=== PATIENT | male | born 1965 | race Caucasian/White ===

== ENCOUNTER 2018-09-28 10:00 | Day surgery (SDC) | payer OTHER ==
[~2018-09-28] VITALS: Ht 182.9 cm; Wt 94.8 kg
[~2018-09-28 10:00] MED LIST: ESOM0.1C PO; NS 1,000 ML IV ONE
[2018-09-28] MEDS ORDERED: PROPOFOL 200 MG/20 ML VIAL As Ordered ONE (12:21)
[2018-09-28] MEDS ORDERED: fentaNYL 100 MCG/2 ML INJECTION (J3010) As Ordered ONE (12:21)
[2018-09-28] MEDS ORDERED: LIDOCAINE 2% INJ 100 MG/5 ML SDV (FOR ANES.) As Ordered ONE (12:21)
[2018-09-28] MEDS ORDERED: ePHEDrine SULFATE 25 MG/5 ML(5MG/ML) SYRINGE As Ordered ONE (12:21)
--- NOTE | 2018-09-28 12:23 | ROOR ---
Patient Name: Bijan Bennett Procedure Date: 09/28/2018 12:06 PM Date of : 1965 Age: 52 Room: [facility] Gender: Male Note Status: Finalized Procedure: Upper Endoscopy + Biopsies Indications: Heartburn, Suspected eosinophilic esophagitis, Exclusion of eosinophilic esophagitis, Follow-up of eosinophilic esophagitis Providers: Chano Knott MD Referring MD: Kris Connor Np Requesting Provider: Medicines: Monitored Anesthesia Care Complications: No immediate complications. Procedure: Pre-Anesthesia Assessment: - The heart rate, respiratory rate, oxygen saturations, blood pressure, adequacy of pulmonary ventilation, and response to care were monitored throughout the procedure. The Endoscope was introduced through the mouth, and advanced to the second part of duodenum. The upper GI endoscopy was accomplished without difficulty. The patient tolerated the procedure well. Findings: The Z-line was regular and was found 45 cm from the incisors. Multiple biopsies were obtained with cold forceps for evaluation to rule out Lara's Esophagus randomly at the gastroesophageal junction. Mucosal changes including ringed esophagus were found in the entire esophagus. Biopsies were obtained from the proximal and distal esophagus with cold forceps for histology of suspected eosinophilic esophagitis. No other significant abnormalities were identified in a careful examination of the stomach. The exam of the duodenum was otherwise normal. Impression: - Z-line regular, 45 cm from the incisors. - Esophageal mucosal changes suspicious for eosinophilic esophagitis. Biopsied. - Multiple biopsies were obtained at the gastroesophageal junction. - The examination was otherwise normal. Recommendation: - Patient has a contact number available for emergencies. The signs and symptoms of potential delayed complications were discussed with the patient. Return to normal activities tomorrow. Written discharge instructions were provided to the patient. - High fiber diet. - Discharge patient to home. - Follow an antireflux regimen. - Continue present medications. - Await pathology results. - Telephone GI clinic for pathology results in 1 week. - Return to referring physician. - The findings and recommendations were discussed with the patient's family. Chano Knott MD Chano Knott MD 09/28/2018 12:23:06 PM This report has been signed electronically. Number of Addenda: 0 Note Initiated On: 09/28/2018 12:06 PM Estimated Blood Loss: Estimated blood loss: none.
--- NOTE | 2018-09-28 12:42 | ROOR ---
Patient Name: Bijan Bennett Procedure Date: 09/28/2018 12:06 PM Date of : 1965 Age: 52 Room: [facility] Gender: Male Note Status: Finalized Procedure: Total Colonoscopy to Cecum + Biopsy Polypectomy Indications: Screening for colorectal malignant neoplasm Providers: Chano Knott MD Referring MD: rKis Connor Np Requesting Provider: Medicines: Monitored Anesthesia Care Complications: No immediate complications. Procedure: Pre-Anesthesia Assessment: - The heart rate, respiratory rate, oxygen saturations, blood pressure, adequacy of pulmonary ventilation, and response to care were monitored throughout the procedure. The Colonoscope was introduced through the anus and advanced to the cecum, identified by appendiceal orifice and ileocecal valve. The colonoscopy was performed without difficulty. The patient tolerated the procedure well. The quality of the bowel preparation was excellent. Findings: The perianal and digital rectal examinations were normal. Non-bleeding internal hemorrhoids were found during retroflexion. The hemorrhoids were small and Grade I (internal hemorrhoids that do not prolapse). A small polyp was found at 40 cm proximal to the anus. The polyp was sessile. The polyp was removed with a jumbo cold forceps. Resection and retrieval were complete. Two sessile polyps were found in the hepatic flexure. The polyps were small in size. These polyps were removed with a jumbo cold forceps. Resection and retrieval were complete. The exam was otherwise without abnormality on direct and retroflexion views. Impression: - Non-bleeding internal hemorrhoids. - One small polyp at 40 cm proximal to the anus, removed with a jumbo cold forceps. Resected and retrieved. - Two small polyps at the hepatic flexure, removed with a jumbo cold forceps. Resected and retrieved. - The examination was otherwise normal on direct and retroflexion views. - The exam was otherwise normal to the cecum. Recommendation: - Patient has a contact number available for emergencies. The signs and symptoms of potential delayed complications were discussed with the patient. Return to normal activities tomorrow. Written discharge instructions were provided to the patient. - High fiber diet. - Discharge patient to home. - Continue present medications. - Await pathology results. - Telephone GI clinic for pathology results in 1 week. - Repeat colonoscopy in 5 years for surveillance based on pathology results. - Return to referring physician. - The findings and recommendations were discussed with the patient's family. Chano Knott MD Chano Knott MD 09/28/2018 12:42:11 PM This report has been signed electronically. Number of Addenda: 0 Note Initiated On: 09/28/2018 12:06 PM Estimated Blood Loss: Estimated blood loss: none.
[2018-09-28 13:20] VITALS: BP 110/76
== END 2018-09-28 13:32 | disposition home or self-care (01) ==
LOC: M OPP 10:00
PROVIDERS: ATTEND Internal Medicine Gastroenterology
DX: Z12.11 Encounter for screening for malignant neoplasm of colon (principal); K64.0 First degree hemorrhoids; K63.5 Polyp of colon; D12.3 Benign neoplasm of transverse colon; K22.0 Achalasia of cardia; R12 Heartburn; K20.0 Eosinophilic esophagitis
CPT/HCPCS: 43239; 45380; 88305; J3010

== ENCOUNTER 2019-02-04 17:36 | Emergency (ER) | payer OTHER ==
[~2019-02-04] VITALS: Ht 182.9 cm; Wt 97.7 kg
[~2019-02-04 17:36] MED LIST changes: -NS 1,000 ML IV ONE
--- NOTE | 2019-02-04 20:22 | REPVR ---
EXAM: US Duplex Left Lower Extremity Veins, Limited EXAM DATE/TIME: 02/04/2019 7:46 PM CLINICAL HISTORY: 53 years old, male; Varicose veins of lower extremities; With pain; Leg, lower; Left; Additional info: Pain , varicose vein TECHNIQUE: Imaging protocol: Real-time Duplex ultrasound of the Left Lower Extremity with 2-D franco scale, color Doppler flow and spectral waveform analysis. Limited exam focused on the left lower extremity veins. COMPARISON: No relevant prior studies available. FINDINGS: Left deep veins: Unremarkable. The common femoral, proximal profunda femoral, femoral and popliteal veins are patent without thrombus. Normal compressibility, augmentation response and Doppler waveforms. Left superficial veins: Thrombosed superficial varicosity along the anterior aspect of the lower leg. Saphenofemoral junction is patent without thrombus. Soft tissues: Unremarkable. IMPRESSION: 1. No sonographic evidence of deep vein thrombosis. 2. Thrombosed superficial varicosity along the anterior aspect of the lower leg. Electronically signed by: Sawyer Figueroa On 02/04/2019 20:21:43 PM
[2019-02-04] MEDS ORDERED: KETO10TAB PO (21:44)
[2019-02-04] MEDS ORDERED: KETOROLAC 60 MG/2 ML VIAL (J1885) IM ONE (21:45)
[2019-02-04 22:07] VITALS: BP 134/70
== END 2019-02-04 22:14 | disposition home or self-care (01) ==
LOC: M ED 17:36
DX: I80.02 Phlebitis and thrombophlebitis of superficial vessels of left lower extremity (principal); K21.9 Gastro-esophageal reflux disease without esophagitis; Z91.018 Allergy to other foods
CPT/HCPCS: 93971; 96372; 99283; J1885

== ENCOUNTER 2022-12-12 12:54 | Day surgery (SDC) | payer OTHER ==
[~2022-12-12] VITALS: Ht 182.9 cm; Wt 94.3 kg
[~2022-12-12 12:54] MED LIST changes: +ESOM1CAP5 PO; +KETO10TAB PO; +LEVOTAB10 PO; +NS 1,000 ML IV ONE
[2022-12-12] MEDS ORDERED: fentaNYL 100 MCG/2 ML INJECTION As Ordered ONE (13:51)
[2022-12-12] MEDS ORDERED: LIDOCAINE 2% 100MG/5ML SDV (FOR ANES.) As Ordered ONE (13:51)
[2022-12-12] MEDS ORDERED: propofoL 500 MG/50 ML VIAL As Ordered ONE (13:51)
[2022-12-12] MEDS ORDERED: ePHEDrine SULFATE 25 MG/5 ML(5MG/ML) SYRINGE As Ordered ONE (13:53)
[2022-12-12 14:22] VITALS: BP 104/68
== END 2022-12-12 14:40 | disposition home or self-care (01) ==
LOC: M OPP 12:54
PROVIDERS: ATTEND Internal Medicine Gastroenterology
DX: Z12.11 Encounter for screening for malignant neoplasm of colon (principal); Z86.010 Personal history of colon polyps; K63.5 Polyp of colon; K64.8 Other hemorrhoids; K57.30 Diverticulosis of large intestine without perforation or abscess without bleeding; K22.89 Other specified disease of esophagus; Z79.899 Other long term (current) drug therapy; Z91.018 Allergy to other foods
CPT/HCPCS: 43239; 45380; 88305; J3010